=== PATIENT | male | born 1950 | race Two or more races ===

== ENCOUNTER 2017-01-04 01:11 | Observation (INO) | payer OTHER, MEDICARE ==
[~2017-01-04] VITALS: Ht 157.5 cm; Wt 66.9 kg
[2017-01-04] MEDS ORDERED: METAPOW PO (01:44)
[2017-01-04] MEDS ORDERED: BENZ5TA PO (01:44)
[2017-01-04] MEDS ORDERED: AMLO25TA PO (01:44)
[2017-01-04] MEDS ORDERED: CLAR10CA3 PO (01:44)
[2017-01-04] MEDS ORDERED: LOPR1TAB6 PO (01:44)
[2017-01-04] MEDS ORDERED: COLA100C PO (01:44)
[2017-01-04] MEDS ORDERED: ASPI81TA85 PO (01:44)
[2017-01-04] MEDS ORDERED: ATOR1TAB19 PO (01:44)
[2017-01-04] MEDS ORDERED: LOSA100T36 PO (01:44)
[2017-01-04] MEDS ORDERED: DIVA500T9 PO (01:44)
[2017-01-04] MEDS ORDERED: OMEP40CA2 PO (01:44)
[2017-01-04] MEDS ORDERED: QUET1TAB10 PO (01:44)
[2017-01-04 02:13] LABS: BASO % 0.2 % (0.0-1.0); EOS # 0.1 K/mm3 (0.0-0.50); EOS % 0.7 % (0.0-3.0); LARGE UNSTAINED CELL # 0.1 K/mm3 (0.0-0.4); LARGE UNSTAINED CELL % 0.7 % (0.0-4.0); LYMPH # 1.6 K/mm3 (1.5-4.5); LYMPH % 11.8 % (24.0-44.0); MEAN CORPUSCULAR HEMOGLOBIN 29.2 pg (27.0-33.0); MEAN CORPUSCULAR HGB CONC 31.7 g/dl (32.0-36.5); MEAN CORPUSCULAR VOLUME 92.2 fl (80.0-96.0); MONO # 0.6 K/mm3 (0.0-0.8); MONO % 4.8 % (0.0-5.0); NEUTROPHILS # 10.5 K/mm3 (1.8-7.7); NEUTROPHILS % 81.8 % (36.0-66.0); PLATELET COUNT, AUTOMATED 209 k/mm3 (150-450); RED CELL DISTRIBUTION WIDTH 13.6 % (11.5-14.5); WHITE BLOOD COUNT 12.9 K/mm3 (4.0-10.0)
[2017-01-04 02:34] LABS: ANION GAP 12 MEQ/L (8-16); BLOOD UREA NITROGEN 18 MG/DL (7-18); CALCIUM LEVEL 8.5 MG/DL (8.8-10.2); CARBON DIOXIDE LEVEL 25 MEQ/L (21-32); CHLORIDE LEVEL 105 MEQ/L (98-107); CREATININE FOR GFR 1.16 MG/DL (0.70-1.30); GLOMERULAR FILTRATION RATE > 60.0 (>49); GLUCOSE, FASTING 151 MG/DL (80-110); POTASSIUM SERUM 4.1 MEQ/L (3.5-5.1); SODIUM LEVEL 142 MEQ/L (136-145)
--- NOTE | 2017-01-04 02:50 | REPUSA ---
CLINICAL HISTORY: Syncope. TECHNIQUE: Multiple axial CT images were obtained through the brain without IV contrast material. COMMENTS: There is normal configuration of sella turcica. There are no intra or extra-axial collections. There is no mass effect or midline shift. There is no evidence of hematoma formation. No hydrocephalus is p resent. The ventricles are symmetrical. No abnormal calcifications are present. There is diffuse age-appropriate cerebellar and cerebral atrophy with proportionally dilated ventricl es and cortical sulci. There are bilateral periventricular and subcortical white matter hypolucencies compatible with mild c hronic microvascular disease. Otherwise, no significant focal abnormalities are seen either in the posterior fossa or supratentoria l compartment. IMPRESSION: 1. Age-appropriate cerebellar and cerebral atrophy. 2. Mild chronic microvascular disease. 3. No evidence of acute intracranial pathology. Thank you for your kind referral of this patient.
[2017-01-04] MEDS ORDERED: METF1000 PO (04:05)
[2017-01-04] MEDS ORDERED: ASPI81TA7 PO (04:05)
[2017-01-04] MEDS ORDERED: OMEG100011 PO (04:06)
[2017-01-04] MEDS ORDERED: DEXTROSE 50% 50 ML SYRINGE IV PRN (05:00)
[2017-01-04] MEDS ORDERED: GLUCOSE 4 GM CHEW TABLET PO PRN (05:00)
[2017-01-04] MEDS ORDERED: GLUCAGON FOR INJ 1 MG VIAL (J1610) SC PRN (05:00)
[2017-01-04] MEDS: NS 1,000 ML IV SCH ×2 (05:19→22:02)
[2017-01-04 06:15] LABS: ERYTHROCYTE SEDIMENTATION RATE 50 mm/hr (0-20)
--- NOTE | 2017-01-04 06:44 | HPEPDOC ---
General Date of Admission Jan 04, 2017 at 03:40 Other Providers primary care provider: Ana Lynne Attending Physician: XENA HER MD Chief Complaint The patient is a 66-year-old male admitted with a reason for visit of Syncope. Source: Patient, Family, RN notes reviewed Exam Limitations: Language barrier (patient is from [facility]) Timing/Duration: This evening (prior to admission) History of Present Illness Mr. Warner is a 66-year-old male who presents to [facility] emergency Department with an episode of unresponsiveness. His and his adult son accompany him and his provides most of the history. Past medical history significant for coronary artery disease, gastroesophageal reflux disease, bipolar disorder, hypertension, diabetes mellitus, history of prostate cancer, obstructive sleep apnea diagnosed in 2009, degenerative joint disease, degenerative disc disease, constipation, allergies. Patient had fallen asleep on the couch downstairs watching television and had awoken in the middle of the night to get himself something to eat. Was eating a bowl of cereal when he suddenly became unresponsive. His son has noticed that he had become unresponsive and had alerted his mother. states that patient felt clammy, sweaty, cold and that he remained unresponsive for approximately 20 minutes. She states that this has happened before and that it takes physical or verbal stimulation to arouse the patient. She states the patient is initially noncoherent after arousal. She states that he sleeps often and is quite tired throughout the day. Patient reports 1 episode of watery diarrhea that was nonbloody and nonmucoid. Reports a cough productive of yellow phlegm as well as a runny nose. admits to taking patient's sugar, but states that it was not abnormal (mid 100s). Patient admits to age-related presbycusis, urinary incontinence for which he wears an adult diaper, chronic right knee and leg pain. Denies seizure-like activity, nausea or vomiting, abdominal pain, numbness and/or tingling, swelling , headache, acute changes to vision and/or hearing (blurry vision, diplopia, acute transient vision loss, tinnitus, acute hearing loss), acute urinary changes (dysuria, urgency, frequency, hematuria), melena, hematochezia, joint pains, muscle pains. Hospitalist service was consulted and patient was subsequently admitted for further medical management. Home Medications Scheduled Amlodipine Besylate (Norvasc) 2.5 Mg Tab 5 MG PO DAILY (Reported) Aspirin (Aspirin) 81 Mg Tab 81 MG PO DAILY (Reported) @ Lunchtime Atorvastatin Calcium (Atorvastatin Calcium) 10 Mg Tab 10 MG PO QHS (Reported) Benztropine Mesylate (Benztropine Mesylate) 0.5 Mg Tab 0.5 MG PO DAILY ( Reported) Divalproex Sodium (Divalproex Sodium ER) 500 Mg Tab 500 MG PO QHS (Reported) Docusate Sodium (Colace) 100 Mg Cap 100 MG PO DAILY (Reported) Loratadine (Claritin) 10 Mg Cap 10 MG PO QHS (Reported) Losartan Potassium (Losartan Potassium) 100 Mg Tab 100 MG PO DAILY (Reported) Metformin Hydrochloride (Metformin HCl) 1,000 Mg Tab 1,000 MG PO BID (Reported ) Metoprolol Tartrate (Lopressor) 50 Mg Tab 50 MG PO BID (Reported) [place] 3 Polyunsat Fatty Acids ([place] 3 1000 mg) 1 Cap Cap 1 CAP PO DAILY ( Reported) @ Lunchtime Omeprazole (Omeprazole) 40 Mg Cap 20 MG PO DAILY (Reported) Quetiapine Fumerate (Quetiapine Fumarate) 300 Mg Tab 300 MG PO QHS (Reported) Allergies Coded Allergies: Hydrochlorothiazide (Unverified Allergy, Unknown, 01/04/17) Past Medical History Medical History 1. Diabetes mellitus 2. Hypertension 3. Gastroesophageal reflux disease 4. Coronary artery disease 5. Bipolar disorder 6. Allergies 7. Constipation 8. Obstructive sleep apnea diagnosed in 2009 9. Degenerative joint disease 10. Degenerative disc disease 11. History of prostate cancer diagnosed in the Surgical History 1. Prostatectomy 2. Bilateral laser eye surgery Family History Significant Family History: Cancer (mom, metastatic cancer), Renal disease ( father, urinary incontinence; brother, kidney failure), Other (Brother, liver failure) Social History * Smoker: former Smoker (one half packs per day, quit in 1991, started smoking approximately 15-16 years old) Alcohol: Denies Drugs: denies Recent Travel/Sick Contacts: Denies: Recent sick contacts, Recent travel Psychosocial History: Bipolar Lives independently with and son Early discharge from No pets in the home Denies environmental exposures Review of Symptoms Constitutional: Reports: Other (decreased fluid intake over the last 2 days), Denies: Chills, Fever, Night Sweats Eyes: Reports: Other (denies acute transient vision loss, blurry vision, diplopia) ENT: Reports: Other Symptoms (presbycusis, age-related), Sinus Congestion ( runny nose), Denies: Head Aches, Sore Throat Skin: Denies: Lesions, Rash Pulmonary: Reports: Cough (productive of yellow phlegm), Denies: Dyspnea, Pleuritic Chest Pain Cardiovascular: Denies: Chest Pain, Edema, Lt Headedness, Orthopnea, Palpitations, Paroxysmal Noc. Dyspnea Gastrointestinal: Reports: Diarrhea (one episode that was watery, nonbloody, nonmucoid), Denies: Abdominal Pain, Constipation, Hematochezia, Melena, Nausea, Vomiting Genitourinary: Reports: Incontinence (wears adult diapers) Hematologic: Denies: Bruising, Petecchia, Purpura Musculoskeletal: Reports: Leg Pain (chronic, right), Other Symptoms (knee pain , chronic), Denies: Back Pain, Joint Pain, Muscle Pain Neurological: Denies: Confusion, Numbness Physical Examination General Exam: Positive: Alert, Cooperative, No Acute Distress, Other ( provides much of the history) Eye Exam: Positive: Conjunctiva & lids normal, EOMI, PERRLA, Negative: Sclera icteric ENT Exam: Positive: Atraumatic, Mucous membr. moist/pink, Nares Patent, Pharynx Normal, Tongue Midline, Negative: Pharyngeal Edema Neck Exam: Positive: JVD, Other (trachea midline), Supple, Negative: Lymphadenopathy, thyromegaly Chest Exam: Positive: Clear to auscultation, Normal air movement Heart Exam: Positive: Normal S1, Normal S2, Other (occasional premature ventricular contractions), Rate Normal, Regular Rhythm, Negative: Murmurs, Rubs Telemetry: Positive: PVCs Abdomen Exam: Positive: Normal bowel sounds, Soft, Negative: Hepatospenomegaly, Hernia, Mass, Tenderness Extremity Exam: Positive: Normal pulses, Negative: Clubbing, Cyanosis, Edema, Swelling, Tenderness Skin Exam: Positive: Nl turgor and temperature Neuro Exam: Positive: Cranial Nerves 3-12 NL, Normal Speech, Strength at 5/5 X4 ext Other physical findings CT of the head without contrast COMMENTS: There is normal configuration of sella turcica. There are no intra-or extra- axial collections. There is no mass effect or midline shift. There is no evidence of hematoma formation. No hydrocephalus is present. The ventricles are symmetrical. No abnormal calcifications are present. There is diffuse age-appropriate cerebellar and cerebral atrophy with proportionate dilated ventricles and cortical sulci. There are bilateral periventricular and subcortical white matter hyperlucencies compatible with mild chronic microvascular disease. Otherwise, no significant focal abnormalities are seen either in the posterior fossa or supratentorial compartment. IMPRESSION: 1. Age-appropriate cerebellar and cerebral atrophy. 2. Mild chronic microvascular disease. 3. No evidence of acute intracranial pathology. Vital Signs T 96.2 HR 68 RR 18 BP 124/64 O2 95% RA Height (in): 62 Weight (kg): 65.317 BMI (kg): 26.3 Laboratory Data Labs 24H Laboratory Tests 2 01/04/17 01:30: Anion Gap 12, White Blood Count 12.9H, Red Blood Count 4.25L, Hemoglobin 12.4L, Hematocrit 39.2L, Mean Corpuscular Volume 92.2, Mean Corpuscular Hemoglobin 29.2 , Mean Corpuscular Hemoglobin Concent 31.7L, Red Cell Distribution Width 13.6, Platelet Count 209, Neutrophils (%) (Auto) 81.8H, Lymphocytes (%) (Auto) 11.8L, Monocytes (%) (Auto) 4.8, Eosinophils (%) (Auto) 0.7, Basophils (%) (Auto) 0.2, Neutrophils # (Auto) 10.5H, Lymphocytes # (Auto) 1.6, Monocytes # (Auto) 0.6, Eosinophils # (Auto) 0.1, Basophils # (Auto) 0.0, C-Reactive Protein, Quantitative 3.55H, Blood Urea Nitrogen 18, Creatinine 1.16, Sodium Level 142, Potassium Level 4.1, Chloride Level 105, Carbon Dioxide Level 25, Calcium Level 8.5L, Creatine Kinase MB 1.1, Creatine Kinase MB Relative Index 1.69, Glomerular Filtration Rate > 60.0, Large Unclassified Cells # 0.1, Large Unclassified Cells % 0.7, Thyroid Stimulating Hormone (TSH) 0.848, Total Creatine Kinase 65, Troponin I < 0.02, Valproic Acid (Depakene) Level 70.0 01/04/17 02:11: Bedside Glucose (Misc Panel) 138H CBC/BMP Laboratory Tests 01/04/17 01:30 Calcium Level 8.5 L, Red Blood Count 4.25 L, Mean Corpuscular Volume 92.2, Mean Corpuscular Hemoglobin 29.2, Mean Corpuscular Hemoglobin Concent 31.7 L, Red Cell Distribution Width 13.6, Neutrophils (%) (Auto) 81.8 H, Lymphocytes (%) ( Auto) 11.8 L, Monocytes (%) (Auto) 4.8, Eosinophils (%) (Auto) 0.7, Basophils (% ) (Auto) 0.2, Neutrophils # (Auto) 10.5 H, Lymphocytes # (Auto) 1.6, Monocytes # (Auto) 0.6, Eosinophils # (Auto) 0.1, Basophils # (Auto) 0.0 Assessment/Plan This is a 66-year-old male who presents with an episode of unresponsiveness. Likely secondary to dehydration secondary to decreased fluid intake. Could be secondary to patient's uncontrolled obstructive sleep apnea for which she does not wear CPAP. Problems (1) Syncope Status: Acute Problem Text: Question presyncope versus syncope versus episode of unresponsiveness versus uncontrolled obstructive sleep apnea Obtain echocardiogram Provide intravenous fluid resuscitation at 80 mLs per hour Follow RONALD protocol (2) Leukocytosis Status: Acute Problem Text: Obtain ESR and CRP Likely reactive Monitor CBC Plan / VTE VTE Prophylaxis Ordered?: Yes (TEDs and sequentials) Plan Plan Syncope Question presyncopal versus unresponsive episode versus syncopal episode versus uncontrolled obstructive sleep apnea. Patient's troponin was < 0.02. EKG revealed normal sinus rhythm with occasional PVC. We'll obtain echocardiogram. Administering intravenous fluid resuscitation and 80 mLs per hour. Follow RONALD protocol. Leukocytosis WBC 12.9. Likely a reactive process. Obtain ESR and CRP. Diabetes mellitus Blood glucose at time of presentation was 151. We'll perform fingersticks before meals and at bedtime and provide sliding scale insulin as needed. DVT prophylaxis: TEDs and sequentials Diet: Consistent carbohydrate Contact information: Vibha Warner Disposition Admit to the progressive care unit for observation Anticipated hospitalization: 2 nights Attending: Dr. Lanier IVF: Initiate (intravenous fluid resuscitation at 80 mLs per hour) Diet: Continue Current (consistent carbohydrate) Activity: Bedrest (with commode privileges) Diagnostics: Check Labs, Repeat Labs in AM, TTE Anticipated Discharge: Home Attending Note Attending Note I, Xena Her, have both independently examined this patient as well as reviewed the documentation. I have discussed in detail with the resident the findings and plan of treatment as documented in the residents documentation. I will continue to follow the patient and offer further guidance to the patients care as necessary during this hospital stay. MARKUS GOMEZ Jan 04, 2017 06:44 XENA HER MD Jan 14, 2017 13:54
[2017-01-04 08:00] VITALS: BP_SYST 100; BP_SYST 137; BP_SYST 138; BP_SYST 149; BP_DIAS 62; BP_DIAS 69; BP_DIAS 77; BP_DIAS 78
[2017-01-04] MEDS: HumaLOG INSULIN (NovoLOG) PER UNIT SC SCH ×4 (08:00→20:45)
[2017-01-04] MEDS: HEPARIN SOD (PORCINE) 5000 UNITS/ML VIAL SQ SCH ×2 (09:12→22:01)
[2017-01-04] MEDS: DOCUSATE SODIUM 100 MG CAP PO SCH (09:12)
[2017-01-04] MEDS: ASPIRIN 81 MG ENTERIC TAB PO SCH (09:12)
[2017-01-04] MEDS: OMEPRAZOLE 20 MG CAP PO SCH (09:12)
[2017-01-04] MEDS: BENZTROPINE 0.5 MG TAB PO SCH (09:12)
--- NOTE | 2017-01-04 09:16 | IPN ---
DATE: 01/04/2017 Patient admitted overnight for syncope. Currently reported back to baseline. Denies any fever or chills, chest pain, pressure or discomfort. No further episodes of diarrhea. Denies any cough, abdominal pain, any skin lesions, dysuria or hematuria. VITAL SIGNS: Temperature 99.5, pulse 95, respiration 18, blood pressure 100/62, pulse oximetry 96% on room air. LABORATORY: WBC 12.9. Hemoglobin and hematocrit 12.4/39.2. Platelets 209. Chemistry: Sodium 142, potassium 4.1, chloride 105, bicarbonate 25, BUN 11, creatinine 1.16. Cardiac enzymes negative times two. PHYSICAL EXAMINATION: General: Patient comfortable, in no acute distress. HEENT: Normocephalic, atraumatic. Pulmonary: Bilateral clear to auscultation. No wheezes, rales or rhonchi. Cardiac: Regular rate and rhythm. Normal S1, S2. Abdomen: Soft, nontender, nondistended. Extremities: No edema bilateral lower extremities. Neurologic: Cranial nerve II-XII grossly intact. Able to move all four extremities. No focal deficits. ASSESSMENT AND PLAN: This is a 66-year-old male patient with underlying medical history of coronary artery disease, gastroesophageal reflux disease (GERD), bipolar disorder, hypertension, diabetes mellitus type 2, history of prostate cancer, obstructive sleep apnea diagnosed 2009, not on continuous positive airway pressure (CPAP), degenerative joint disease, degenerative disc disease, constipation, and allergies. Patient presented with an episode of unresponsiveness at night. As per family, patient was sleeping on a couch, got up, watching television, fell asleep, got up to eat something and suddenly became unresponsive. Subsequently was brought to the hospital. CT scan was done. PROBLEMS: 1. Syncope. Questioned presyncope versus syncope. Patient is a very poor historian. Possible etiology cardiac versus obstructive sleep apnea. Description of the patient given is not consistent with seizure. Will obtain echocardiogram, nocturnal pulse oximetry, orthostatic vital signs, obstructive sleep apnea (RONALD) protocol. Intravenous (IV) fluid started. Telemetry monitoring. Cardiac enzymes are negative times two. Will follow blood cultures to work further infectious etiology and GI panel. 2. Leukocytosis. Questionable reactive versus acute. Erythrocyte sedimentation rate (ESR), C-reactive protein (CRP) elevated. Followup blood cultures. Will obtain GI panel. No obvious source of infection on physical exam. Will continue to monitor. IV fluids given. 3. Coronary artery disease. Continue aspirin and statin, losartan and beta-blockers. Continue to monitor. 4. Hypertension. Continue Norvasc, losartan, metoprolol. Monitor blood pressure. 5. Bipolar disorder. Continue home medications. 6. Type 2 diabetes. Holding all medications. Insulin as per protocol. 7. Obstructive sleep apnea. Continue his pulse oximetry. Will follow with nocturnal oximetry. Oxygen as needed. 8. Degenerative joint disease and degenerative disc disease. Continue home medication. 9. Gastroesophageal reflux disease. Continue proton pump inhibitor (PPI). 10. History of prostate cancer. Outpatient followup. 11. Deep venous thrombosis (DVT) prophylaxis. Heparin subcutaneous. DISPOSITION: Discharge planning pending physical therapy, echocardiogram, further workup. [facility]
[2017-01-04] MEDS: METOPROLOL TART 50 MG TAB PO SCH ×2 (09:27→22:02)
[2017-01-04] MEDS: amLODIPine 5 MG TAB PO SCH (09:27)
[2017-01-04] MEDS: LOSARTAN 50 MG TAB PO SCH (09:27)
--- NOTE | 2017-01-04 09:34 | REP ---
Portable chest x-ray: Sitting AP view. History: Syncope. Findings: The lungs are symmetrically aerated and clear. Pleural angles are sharp. Heart size is normal. Pulmonary vasculature is not increased. No significant bony abnormality is seen. Impression: No active disease. Signed by Herman Hdz MD 01/04/2017 09:55 A
[2017-01-04 12:00] VITALS: BP 147/72
[2017-01-04 16:20] VITALS: BP 150/80
[2017-01-04 19:58] VITALS: BP 144/84
--- NOTE | 2017-01-04 20:27 | ECGEPIP ---
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
[2017-01-04] MEDS: LORATADINE 10 MG TAB PO SCH (22:01)
[2017-01-04] MEDS: QUEtiapine FUMARATE 100 MG TAB PO SCH (22:01)
[2017-01-04] MEDS: ATORVASTATIN 10 MG TAB PO SCH (22:01)
[2017-01-04] MEDS: DIVALPROEX 500MG *ER* TAB PO SCH (22:01)
[2017-01-05] VITALS (16 sets, daily range): BP systolic 133–188; BP diastolic 71–92; O2SAT 95–99
[2017-01-05 05:31] LABS: MEAN CORPUSCULAR HEMOGLOBIN 30.4 pg (27.0-33.0); MEAN CORPUSCULAR HGB CONC 33.7 g/dl (32.0-36.5); MEAN CORPUSCULAR VOLUME 90.2 fl (80.0-96.0); RED CELL DISTRIBUTION WIDTH 13.7 % (11.5-14.5); WHITE BLOOD COUNT 10.1 K/mm3 (4.0-10.0)
[2017-01-05 05:48] LABS: ANION GAP 4 MEQ/L (8-16); BLOOD UREA NITROGEN 14 MG/DL (7-18); CALCIUM LEVEL 7.9 MG/DL (8.8-10.2); CARBON DIOXIDE LEVEL 28 MEQ/L (21-32); CHLORIDE LEVEL 111 MEQ/L (98-107); CREATININE FOR GFR 0.82 MG/DL (0.70-1.30); GLOMERULAR FILTRATION RATE > 60.0 (>49); GLUCOSE, FASTING 104 MG/DL (80-110); POTASSIUM SERUM 3.8 MEQ/L (3.5-5.1); SODIUM LEVEL 143 MEQ/L (136-145)
--- NOTE | 2017-01-05 05:52 | ECHO ---
DATE OF PROCEDURE: 01/04/2017 AGE: 66 GENDER: Male REFERRING PHYSICIAN: Dr. Stacy Lanier. HEIGHT: 62 inches. WEIGHT: 144 pounds. BODY SURFACE AREA: 1.66 sq m. Patient in the holding area in the emergency room. INDICATION: Syncope. MEASUREMENTS: 2D MEASUREMENTS: RV - 3.8 cm LV- 4.2 cm Septum - 1.1 cm Posterior wall - 1.1 cm Aortic root: 2.9 cm LA - 3.2 cm LVEF - 75% DOPPLER MEASUREMENTS: AV - 1.5 m/s LVOT - 1.2 m/s LVOT diameter - 1.8 cm MV-E: 97 A: 96 EA ratio 1 Early mitral deacceleration time - 230 ms E-prime - 6.5 A-prime - 7 E/E prime ratio 14.8 PV - 0.9 m/s Pulmonary artery acceleration time - 160 ms RVSP - 32 mmHg IVC - 1.6 cm COMMENTS: Normal sinus rhythm without intraventricular conduction disturbance. Normal cardiac chamber sizes and wall thickness. On real-time imaging from the parasternal and apical projections, wall motion was symmetrical and hyperkinetic. Slightly thickened mitral annulus but normal leaflet thickness and excursion with no posterior systolic buckling. Three equal size aortic cusps of normal thickness and cusp separation. Normal aortic root size. No apparent intracardiac mass or pericardial effusion. Color flow Doppler study taken from the parasternal and apical projection showed trace mitral and very mild tricuspid but no aortic insufficiency. Guided continuous wave Doppler of his aortic valve showed a normal peak systolic velocity against LV outflow tract obstruction. Pulsed and continuous wave Doppler of his LV inflow tract taken from the apical four-chamber projection showed normal diastolic filling velocities against mitral stenosis. There was a slightly prolonged early mitral deceleration time and tissue Doppler evidence of a degree of LV diastolic dysfunction in keeping with his age. Estimated mean left atrial pressure was upper limits of normal. Pulsed and continuous wave Doppler of his pulmonary trunk showed a normal peak systolic velocity against RV outflow tract obstruction. His pulmonary artery acceleration time was normal against an elevated pulmonary vascular resistance. Guided continuous wave Doppler of his tricuspid valve allowed our estimation of his right ventricular systolic pressure (upper limits of normal to slightly increased). IVC size was normal with normal respiratory collapse against an elevated central venous pressure. CONCLUSIONS: Unable to detect a structural or functional abnormality to account for the patient's syncopal spell. Normal left ventricular size, wall thickness and wall motion. Normal left atrial size with Doppler evidence of diastolic dysfunction in keeping with his age with estimated left atrial pressure upper limits of normal. Normal right heart chamber sizes and motion with no more than borderline pulmonary hypertension. Normal IVC size and collapse against an elevated central venous pressure.
[2017-01-05] MEDS: HumaLOG INSULIN (NovoLOG) PER UNIT SC SCH ×4 (07:30→21:00)
[2017-01-05] MEDS: BENZTROPINE 0.5 MG TAB PO SCH (09:06)
[2017-01-05] MEDS: DOCUSATE SODIUM 100 MG CAP PO SCH (09:06)
[2017-01-05] MEDS: LOSARTAN 50 MG TAB PO SCH (09:06)
[2017-01-05] MEDS: OMEPRAZOLE 20 MG CAP PO SCH (09:06)
[2017-01-05] MEDS: amLODIPine 5 MG TAB PO SCH (09:07)
[2017-01-05] MEDS: ASPIRIN 81 MG ENTERIC TAB PO SCH (09:07)
[2017-01-05] MEDS: METOPROLOL TART 50 MG TAB PO SCH ×2 (09:07→21:25)
[2017-01-05] MEDS: HEPARIN SOD (PORCINE) 5000 UNITS/ML VIAL SQ SCH ×2 (09:08→21:24)
[2017-01-05] MEDS: NS 1,000 ML IV SCH (09:26)
--- NOTE | 2017-01-05 10:42 | IPN ---
DATE: 01/05/2017 SUBJECTIVE: Mr. Warner is sitting comfortably in bed having just finished his breakfast this morning upon evaluation. He states that he had no concerns overnight. He states that he ambulates from his bed to the restroom without any concerns. He denies any shortness of breath, dizziness, weakness. States that he has no more of the episodes that brought him to the hospital. OBJECTIVE: Vitals: Temperature 96.9, heart rate 68, respirations 18, blood pressure 133/71 , pulse oximetry 97% on room air, input and output 1900/700 with a positive fluid balance of 1200. General: Very pleasant man who appears in no apparent distress and appears stated age, resting comfortably in his hospital bed. HEENT: Atraumatic, pupils equal, round, reactive to light, extraocular muscles intact. Oral mucosa appears pink and moist, nasal septum appears midline. Lungs: Clear to auscultation bilaterally. Normal inspiratory and expiratory breath sounds, no wheezes, crackles, rhonchi. Heart: Regular rate and rhythm, normal S1, S2. No murmurs, rubs, clicks. Abdomen: Flat, soft, nontender, nondistended, bowel sounds appreciated in all quadrants. Extremities: Peripheral pulses appreciated bilaterally in upper extremities, no edema appreciated. Neurologic: Cranial nerves II through XII are grossly intact, able to move all four extremities. LABORATORY DATA: White blood cells 10.1, hemoglobin 11, hematocrit 32.5, platelets 186. Sodium 143, potassium 3.8, chloride 111, carbon dioxide 28, BUN 14, creatinine 0.82, glucose 104, estimated mean plasma glucose 117, hemoglobin A1c 5.7, calcium 7.9, C-reactive protein 3.85. Microbiology: Blood cultures are still pending. Echocardiogram: Unable to detect a structural functional abnormality to account for the patient' s syncopal spell. Normal left ventricular size, wall thickness and wall motion. Normal left atrial size with Doppler evidence of diastolic dysfunction in keeping with his age with estimated left atrial pressure upper limits of normal. Normal right heart chamber sizes and motion with no more than borderline pulmonary hypertension. Normal IVC size and collapse against an elevated central venous pressure. PFS: Anticipated disposition to home. ASSESSMENT: Ms. Warner is a 66-year-old male who presented to [facility] emergency department with episode of syncope versus pre-syncope versus unresponsiveness. Past medical history significant for bipolar disorder, tremors, diabetes mellitus, hypertension, gastroesophageal reflux disease, constipation, allergies, dyslipidemia. PLAN: 1. Syncope versus pre-syncope versus unresponsiveness. Echocardiogram performed on 01/04/2017 does not show any abnormalities to explain patient's episodes. Patient reports no further episodes while hospitalized. States that he is ambulating well. Physical therapy consultation has been placed. Patient and family services (PFS) anticipates that patient will be discharged home. Likely that patient will remain in the hospital at least for another day. Cardiac monitoring has revealed no acute abnormalities. 2. Anemia. Patient's hemoglobin and hematocrit are 11 and 32.5, respectively. This could be likely secondary to delusional effect as patient has been receiving intravenous fluid resuscitation at 80 mL/hr. We have discontinued fluid resuscitation. Will continue to monitor with daily CBC. 3. Bipolar disorder. Patient remains on home dose of Depakote. 4. Tremors. Patient remains in Seroquel and Cogentin. 5. Hypotension. Patient remains on Lopressor and Cozaar. Patient is also on Norvasc. 6. Diabetes mellitus. Patient remains on fingersticks before meals and bedtime with sliding scale insulin per protocol as well as hyperglycemia protocol. 7. Allergies. Patient remains on Claritin. 8. Gastroesophageal reflux disease. Patient remains in Prilosec. 9. Dyslipidemia. Patient remains on Lipitor. 10. Constipation. Patient remains on Colace. 11. Deep venous thrombosis (DVT) prophylaxis. Patient remains on heparin. DISPOSITION: Patient remains hospitalized in the progressive care unit secondary to syncopal versus presyncopal versus unresponsive episode. Will remain monitored for the next 24 hours. Anticipate discharge home tomorrow. Await evaluation from physical therapy. My preceptor for this patient encounter was Dr. Sesay. The preceptor was physically present in the building during the encounter and was fully available. As needed, all aspects of the patient interview, examination, medical decision making process, and medical care plan development were reviewed and approved by the preceptor. The preceptor is aware and concurs with the plan as stated in the body of this note and will attest to such by his/her cosignature. KRISTIN
[2017-01-05] MEDS ORDERED: SLF 3 ML SYR IV PRN (21:15)
[2017-01-05] MEDS: LORATADINE 10 MG TAB PO SCH (21:24)
[2017-01-05] MEDS: ATORVASTATIN 10 MG TAB PO SCH (21:24)
[2017-01-05] MEDS: QUEtiapine FUMARATE 100 MG TAB PO SCH (21:24)
[2017-01-05] MEDS: DIVALPROEX 500MG *ER* TAB PO SCH (21:24)
[2017-01-05] MEDS: SLF 3 ML SYR IV SCH (21:25)
[2017-01-06] VITALS (7 sets, daily range): BP systolic 150–184; BP diastolic 76–92
[2017-01-06] MEDS ORDERED: amLODIPine 10 MG TAB PO ONE (04:30)
[2017-01-06] MEDS: SLF 3 ML SYR IV SCH (04:53)
--- NOTE | 2017-01-06 05:45 | NOCOX ---
DATE OF PROCEDURE: 01/04/2017 Nocturnal recording oximetry was performed on room air. Baseline saturation 97%. Lowest oxygen saturation reliably recorded 95%. There was minimal patterning appreciated. IMPRESSION: Normal nocturnal recording oximetry on room air.
[2017-01-06 05:51] LABS: MEAN CORPUSCULAR HEMOGLOBIN 30.1 pg (27.0-33.0); MEAN CORPUSCULAR HGB CONC 33.4 g/dl (32.0-36.5); MEAN CORPUSCULAR VOLUME 90.3 fl (80.0-96.0); RED CELL DISTRIBUTION WIDTH 13.9 % (11.5-14.5); WHITE BLOOD COUNT 9.1 K/mm3 (4.0-10.0)
[2017-01-06 06:05] LABS: ANION GAP 8 MEQ/L (8-16); BLOOD UREA NITROGEN 15 MG/DL (7-18); CALCIUM LEVEL 8.4 MG/DL (8.8-10.2); CARBON DIOXIDE LEVEL 27 MEQ/L (21-32); CHLORIDE LEVEL 109 MEQ/L (98-107); CREATININE FOR GFR 0.84 MG/DL (0.70-1.30); GLOMERULAR FILTRATION RATE > 60.0 (>49); GLUCOSE, FASTING 86 MG/DL (80-110); POTASSIUM SERUM 3.9 MEQ/L (3.5-5.1); SODIUM LEVEL 144 MEQ/L (136-145)
[2017-01-06] MEDS: HumaLOG INSULIN (NovoLOG) PER UNIT SC SCH (07:26)
[2017-01-06] MEDS: DOCUSATE SODIUM 100 MG CAP PO SCH (08:46)
[2017-01-06] MEDS: OMEPRAZOLE 20 MG CAP PO SCH (08:46)
[2017-01-06] MEDS: BENZTROPINE 0.5 MG TAB PO SCH (08:46)
[2017-01-06] MEDS: LOSARTAN 50 MG TAB PO SCH (08:47)
[2017-01-06] MEDS: METOPROLOL TART 50 MG TAB PO SCH (08:47)
[2017-01-06] MEDS: ASPIRIN 81 MG ENTERIC TAB PO SCH (08:47)
[2017-01-06] MEDS: HEPARIN SOD (PORCINE) 5000 UNITS/ML VIAL SQ SCH (08:48)
--- NOTE | 2017-01-06 17:18 | DSES ---
DATE OF ADMISSION: 01/04/2017 DATE OF DISCHARGE: 01/06/2017 PRIMARY DISCHARGE DIAGNOSES: 1. Syncope. Telemetry was unremarkable. Echocardiogram was within normal limits. CT of the head was negative. 2. Leukocytosis of 12,000. Negative blood and urine culture. Chest x-ray unremarkable for active disease. 3. History of coronary artery disease (CAD). 4. Hypertension. 5. Bipolar disorder. 6. Type 2 diabetes. 7. Obstructive sleep apnea. Normal nocturnal pulse oximetry. 8. Reflux. 9. History of prostate carcinoma (CA). 10. Degenerative disc disease. DISCHARGE MEDICATIONS: - Norvasc 5 mg daily - aspirin 81 daily - atorvastatin 10 daily - benztropine 0.5 daily - valproic acid 500 at bedtime - Colace 100 daily - loratadine 10 daily - losartan 100 daily - metformin 1 gram twice a day - metoprolol 50 twice a day - omega-3 one capsule daily - Prilosec 20 daily - quetiapine 300 at bedtime HOSPITAL COURSE: A 66-year-old male who presented to the emergency room with a period of unresponsiveness per the at home. The patient was sleeping on the couch, got up, watched television, fell asleep, got up for something to eat and became unresponsiveness. CT of the head was negative for acute cerebrovascular accident (CVA), age-appropriate cerebellar cerebral atrophy, chronic microvascular disease. No evidence of acute intracranial pathology. The patient' s blood work shows mild leukocytosis, white count of 12,000. Urinalysis was negative. Chest x-ray showed no acute infiltrate. No empiric antibiotics were given. White count improved to 9.1. No fever. Telemetry and EKG showed sinus rhythm, occasional premature ventricular contractions (PVCs), nonspecific T wave abnormalities, ME interval was 150, QT 405, QTc of 437. The patient's potassium was normal at 3.9 to 4.1 for the past three days. Creatinine was normal. The patient underwent an echocardiogram and nocturnal oximetry, both of which were normal. Echocardiogram showed an ejection fraction (EF) of 75% with no structural or functional abnormality to account for the patient's syncopal episode. The patient passed a home safety evaluation and was discharged home with recommendations for cardiology referral for a loop event recorder. LABORATORY DATA ON DISCHARGE: White count 9.1, hemoglobin 10, hematocrit 32, platelet count 193. Sodium 144, potassium 3.9, chloride 109, bicarbonate 27, BUN 15, creatinine 0.84 , glucose of 84. MICROBIOLOGY: Two sets of blood cultures are no growth after 24 hours. Chest x-ray shows no active disease. CT of the head: Age-appropriate cerebellar cerebral atrophy, mild chronic microvascular disease, no evidence of acute intracranial pathology. MTDD
[2017-01-07] MEDS ORDERED: amLODIPine 10 MG TAB PO SCH (09:00)
== END 2017-01-06 10:13 | disposition home or self-care (01) ==
LOC: EDBD 01:11 → M ED 02:17 → M ED INP 03:40 → M PCU 16:21
PROVIDERS: ADMIT Internal Medicine; ATTEND General Practice
DX: R55 Syncope and collapse (principal); D72.829 Elevated white blood cell count, unspecified; I25.10 Atherosclerotic heart disease of native coronary artery without angina pectoris; I10 Essential (primary) hypertension; F31.9 Bipolar disorder, unspecified; E11.9 Type 2 diabetes mellitus without complications; K21.9 Gastro-esophageal reflux disease without esophagitis; G47.33 Obstructive sleep apnea (adult) (pediatric); M51.9 Unspecified thoracic, thoracolumbar and lumbosacral intervertebral disc disorder; Z85.46 Personal history of malignant neoplasm of prostate; D64.9 Anemia, unspecified; R25.1 Tremor, unspecified; I95.9 Hypotension, unspecified; E78.5 Hyperlipidemia, unspecified; K59.00 Constipation, unspecified; J30.9 Allergic rhinitis, unspecified; M19.90 Unspecified osteoarthritis, unspecified site; Z88.8 Allergy status to other drugs, medicaments and biological substances; Z79.899 Other long term (current) drug therapy; Z79.82 Long term (current) use of aspirin; Z79.84 Long term (current) use of oral hypoglycemic drugs; Z87.891 Personal history of nicotine dependence
CPT/HCPCS: 36415; 70450; 71010; 80048; 80164; 81001; 82550; 82553; 83036; 84443; 84484; 85025; 85027; 85652; 86140; 87040; 87086; 93005; 93041; 93306; 94760; 94762; 96360; 96361; 96372; 97161; 99285; G0378